=== PATIENT | female | born 1965 | race American Indian/Alaskan Native ===

== ENCOUNTER 2016-11-07 07:35 | Day surgery (SDC) | payer MEDICAID ==
[2016-11-07] MEDS ORDERED: Lactated Ringer's 500 ML IV ONE (08:01)
[2016-11-07] MEDS ORDERED: Propofol 10 mg/ml Inj (20 ML) ONE (09:28)
[2016-11-07 10:43] VITALS: BP 127/78; PULSE 69; RESP 16; TEMP 96.9; O2SAT 100
== END 2016-11-07 11:00 | disposition home or self-care (01) ==
LOC: H.ENDO 07:35
PROVIDERS: ATTEND Internal Medicine Gastroenterology
DX: Z12.11 Encounter for screening for malignant neoplasm of colon (principal); E11.9 Type 2 diabetes mellitus without complications; E78.5 Hyperlipidemia, unspecified; I10 Essential (primary) hypertension; K64.8 Other hemorrhoids; K30 Functional dyspepsia; K31.9 Disease of stomach and duodenum, unspecified; K25.9 Gastric ulcer, unspecified as acute or chronic, without hemorrhage or perforation; K44.9 Diaphragmatic hernia without obstruction or gangrene